=== PATIENT | female | born 1975 | race Two or more races ===

== ENCOUNTER → 2022-11-13 | Outpatient (CLI) | payer OTHER, SELFPAY ==
[2022-11-13 11:40] LABS: Absolute Lymphocyte Count 2.63 X10^3/uL (0.83-4.51); Absolute Neutrophil Count 4.9 X10^3/uL (2.0-7.7); Basophil# 0.06 X10^3/uL; Basophil% 0.7 % (0-1); Eosinophil# 0.33 X10^3/uL; Eosinophils% 3.9 % (0-5); Hematocrit 41.8 % (37-47); Hemoglobin 13.8 g/dL (12.0-15.0); Lymphocyte # 2.63 X10^3/ul (0.83-4.51); Lymphocyte % 31.3 % (19-41); Mean Corpuscular Volume 93.9 fL (81-99); Mean Platelet Vol. 10.7 fl (6.2-12.0); NRBC Flagged by Analyzer 0 % (0-5); Neutrophil # 4.86 X10^3/uL (2.7-7.7); Neutrophil % 57.9 % (47-70); Platelet Count 350 K/mm3 (150-450); RBC Distribution Width SD 41.6 fl (35.1-43.9); Red Blood Count 4.45 M/mm3 (4.2-5.4); White Blood Count 8.4 K/mm3 (4.4-11.0)
[2022-11-13 12:13] LABS: Estradiol 70.5 pg/mL; Follicle Stimulating Hormone 8.1 mIU/mL; Luteinizing Hormone 16.9 mIU/mL; T4 Free Direct 1.12 ng/dL (0.76-1.46); Thyroid Stim Hormone (TSH) 2.12 uIU/mL (0.358-3.74)
[2022-11-15 08:25] LABS: Testosterone Free 1.9 pg/mL (0.0-4.2)
== END | disposition home or self-care (01) ==
LOC: WOBLAB 10:35
PROVIDERS: Visit Provider Nurse Practitioner Women's Health
DX: N93.9 Abnormal uterine and vaginal bleeding, unspecified (principal)
CPT/HCPCS: 36415; 82670; 83001; 83002; 84146; 84402; 84439; 84443; 85025

== ENCOUNTER → 2022-11-27 | Outpatient (CLI) | payer OTHER, SELFPAY ==
--- NOTE | 2022-11-27 | EMB_PTH ---
PATIENT: MORAIMA LOC: FLO U#:[id number] AGE/SX: 46/F ROOM: RE11/27/[address]: Dr. Emeli Kahn, : 1975 BED: DIS: 11/27/2022 SPEC #: [id number] RECD: 11/27/22 15:13 STATUS: [place] #: [id number] RISSA: 11/27/22 00:[address]: Emeli Kahn DEPT: SURGICAL PATHOLOGY RECD BY: Yair Adair Tissues: Endometrium, NOS Procedures: Surgery Specimen Level IV HEADER OPERATION: Endometrial biopsy PRE-OP DIAGNOSIS: Heavy irregular menses TISSUE SUBMITTED: Endometrial biopsy MICROSCOPIC DIAGNOSIS Endometrial biopsy: Secretory endometrium. MEGAN:sonja 11/29/2022 MICROSCOPIC DESCRIPTION Slides are reviewed. GROSS DESCRIPTION Received in fixative is one container labeled with the patient's name and designated endometrial biopsy. The specimen consists of multiple irregular fragments of light pink-su soft tissue that in aggregate measure 2.0 x 1.5 x 0.1 cm. The specimen is totally submitted in one cassette. / AM:sonja 11/28/2022 TC:4 CPT: 89838
== END | disposition home or self-care (01) ==
LOC: LABSPEC 14:58
PROVIDERS: Visit Provider Student in an Organized Health Care Education/Training Program
DX: N92.0 Excessive and frequent menstruation with regular cycle (principal)
CPT/HCPCS: 88305